=== PATIENT | male | born 1955 | race Caucasian/White ===

== ENCOUNTER 2017-08-22 08:19 | Day surgery (SDC) | payer OTHER ==
[~2017-08-22 08:19] MED LIST: PROPOFOL 500 MG/50 ML EMU IV ONE
[2017-08-22 08:39] VITALS: TEMP 97.2
[2017-08-22 09:56] VITALS: BP 106/69; PULSE 58; RESP 18; O2SAT 95
== END 2017-08-22 10:13 | disposition home or self-care (01) | DRG 951 ==
LOC: SURG 08:19
PROVIDERS: ATTEND Surgery
DX: Z12.11 Encounter for screening for malignant neoplasm of colon (principal); K57.30 Diverticulosis of large intestine without perforation or abscess without bleeding; Z80.0 Family history of malignant neoplasm of digestive organs
CPT/HCPCS: J2704